=== PATIENT | male | born 1965 | race African-American/Black ===

== ENCOUNTER 2022-09-22 03:05 | Emergency (ER) | payer OTHER ==
[~2022-09-22] VITALS: Ht 185.4 cm; Wt 100.0 kg
[2022-09-22] MEDS ORDERED: PREDNISONE 20MG TABLET PO ONE (03:30)
[2022-09-22] MEDS ORDERED: FAMOTIDINE 20MG TABLET PO ONE (03:30)
[2022-09-22] MEDS ORDERED: EPIN0.3P3 IM (05:07)
[2022-09-22 05:30] VITALS: BP 134/66
== END 2022-09-22 06:23 | disposition home or self-care (01) ==
LOC: ER 03:22
DX: T78.02XA Anaphylactic reaction due to shellfish (crustaceans), initial encounter (principal); X58.XXXA Exposure to other specified factors, initial encounter; Y93.89 Activity, other specified; Y92.511 Restaurant or cafe as the place of occurrence of the external cause; Z91.013 Allergy to seafood
CPT/HCPCS: 99283; J7512